=== PATIENT | male | born 1970 | race Caucasian/White ===

== ENCOUNTER 2020-01-08 20:57 | Emergency (ER) | payer MEDICAID ==
[~2020-01-08] VITALS: Ht 170.2 cm; Wt 72.0 kg
[2020-01-08 21:17] VITALS: BP 160/100
[2020-01-08] MEDS ORDERED: DIAZEPAM 5 MG TABLET PO ONE (21:45)
== END 2020-01-08 22:30 | disposition home or self-care (01) ==
LOC: ER 20:57
DX: F41.9 Anxiety disorder, unspecified (principal)
CPT/HCPCS: 93005; 99283

== ENCOUNTER 2022-02-12 17:53 | Emergency (ER) | payer MEDICAID, OTHER ==
[~2022-02-12] VITALS: Ht 167.6 cm; Wt 83.0 kg
[2022-02-12] MEDS ORDERED: QUET50TA MT (22:59)
[2022-02-12] MEDS ORDERED: QUETIAPINE FUMARATE 50MG TABLET PO NR (23:15)
[2022-02-12 23:20] VITALS: BP 112/78
[2022-02-13] MEDS ORDERED: QUETIAPINE FUMARATE 50MG TABLET PO SCH (22:50)
== END 2022-02-12 23:20 | disposition home or self-care (01) ==
LOC: ER 18:18
DX: F41.9 Anxiety disorder, unspecified (principal); Z76.0 Encounter for issue of repeat prescription
CPT/HCPCS: 99283; Z7610